=== PATIENT | female | born 1985 | race Caucasian/White ===

== ENCOUNTER 2017-11-15 13:45 | Emergency (ER) | payer OTHER ==
[2017-11-15 13:50] VITALS: BP 113/55; PULSE 102; TEMP 98.2; BMI 26.5
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
[2017-11-15] MEDS ORDERED: KETOROLAC TROMETHAMINE 60 MG/2 ML VIAL IM ONE (14:24)
[2017-11-15] MEDS ORDERED: KETOROLAC TROMETHAMINE 60 MG/2 ML VIAL ONE (14:36)
== END 2017-11-15 15:02 | disposition home or self-care (01) ==
LOC: JERFT 13:45
PROC: 3E0233Z Introduction of Anti-inflammatory into Muscle, Percutaneous Approach (ICD-10-PCS; principal; 2017-11-15)
DX: T14.8XXA Other injury of unspecified body region, initial encounter (principal); V49.88XA Car occupant (driver) (passenger) injured in other specified transport accidents, initial encounter; Y93.89 Activity, other specified; Y92.410 Unspecified street and highway as the place of occurrence of the external cause
CPT/HCPCS: 72050-TC-FY; 73010-TC-FY; 84703; 99281-25